=== PATIENT | male | born 1985 | race Caucasian/White ===

== ENCOUNTER 2024-12-07 11:23 | Emergency (ER) | payer BC, OTHER ==
[2024-12-07 11:32] VITALS: BP 156/105; PULSE 72
[2024-12-07] MEDS: Lidocaine 2% Viscous Solution 15 ML UD PO ONE (11:51)
[2024-12-07] MEDS: Take Home: Amoxicillin/Clavulanate K 875-125 MG Tab, 6 Tab Pack PO ONE (11:51)
== END 2024-12-07 12:02 | disposition home or self-care (01) ==
LOC: DL.ED 11:23
DX: K04.7 Periapical abscess without sinus (principal); Z88.6 Allergy status to analgesic agent; Z79.899 Other long term (current) drug therapy
CPT/HCPCS: 64400; 99282; A9270